=== PATIENT | female | born 1955 | race Caucasian/White ===

== ENCOUNTER 2020-01-30 18:36 | Emergency (ER) | payer MEDICAID ==
[~2020-01-30] VITALS: Ht 152.4 cm; Wt 48.5 kg
--- NOTE | 2020-01-30 18:45 | NUR ---
"Swollen joins-wrist and knees since friday also having allergies/sneezing" Patient a/ox4, ambulatory with steady gait, c/o pain on wrist and knees. Breathing even and unlabored, no sob noted.
[2020-01-30] MEDS ORDERED: IV NS 0.9% 1,000 ML BAG IV ONE (19:00)
[2020-01-30 19:13] LABS: BASOPHILS % (AUTO) 0.8 % (0.0-2.0); EOSINOPHILS % (AUTO) 2.7 % (0.0-6.0); HEMATOCRIT 36 % (33-45); HEMOGLOBIN 12.2 g/dL (11.5-14.8); LYMPHOCYTES # (AUTO) 1.1 /CMM (0.8-4.8); LYMPHOCYTES % (AUTO) 29.5 % (20.0-44.0); MEAN CORPUSCULAR HGB CONC 34 g/dl (31.0-36.0); MEAN CORPUSCULAR VOLUME 84 fL (82-100); MONOCYTES # (AUTO) 0.4 /CMM (0.1-1.30); NEUTROPHILS # (AUTO) 2.2 /CMM (1.8-8.9); PLATELET COUNT (AUTO) 167 /CMM (150-450); RED BLOOD CELL COUNT(AUTO) 4.31 MIL/uL (4.0-5.2); WHITE BLOOD COUNT (AUTO) 3.8 K/uL (4.3-11.0)
[2020-01-30 19:21] LABS: CALCIUM, SERUM 8.4 mg/dL (8.5-10.1); CREATININE 0.6 mg/dL (0.6-1.3); POTASSIUM 4.1 mmol/L (3.5-5.1)
[2020-01-30 19:33] LABS: ALBUMIN 3.6 g/dL (3.4-5.0); BILIRUBIN,DIRECT 0.1 mg/dL (0.0-0.2); BILIRUBIN,TOTAL 0.3 mg/dL (0.2-1.0); TOTAL PROTEIN, SERUM 7.1 g/dL (6.4-8.2)
--- NOTE | 2020-01-30 19:38 | NUR ---
COVID swab sent to lab and urine sample. Endorsed to Camryn ARCHULETA for JOSR.
--- NOTE | 2020-01-30 19:40 | NUR ---
US TECH AT BED SIDE
[2020-01-30 19:52] LABS: APPEARANCE,URINE Clear (CLEAR); BILIRUBIN,URINE Negative (NEGATIVE); BLOOD, URINE Negative Ery/uL (NEGATIVE); COLOR,URINE Yellow (YELLOW); KETONES,URINE Negative (NEGATIVE); LEUKOCYTE ESTERASE ,URINE Negative (NEGATIVE); NITRITE, URINE Negative (NEGATIVE); PH,URINE 5.5 (5.0-8.0); PROTEIN,URINE Negative (NEGATIVE); UGLUCOSE Negative (NEGATIVE); UROBILINOGEN,URINE 0.2 EU/dL (0.2)
--- NOTE | 2020-01-30 20:37 | NUR ---
PT IS MEDICALLY STABLE FOR D/C, IV removed. Catheter intact and site benign. Pressure and 4x4 applied to site. No bleeding noted.Patient discharged to home in stable condition. Rx and Written and verbal after care instructions given. Patient verbalizes understanding of instruction.
[2020-01-30 20:38] VITALS: BP 121/70
== END 2020-01-30 20:38 | disposition home or self-care (01) ==
LOC: ER 18:37
DX: M25.50 Pain in unspecified joint (principal); M71.22 Synovial cyst of popliteal space [Baker], left knee; R70.0 Elevated erythrocyte sedimentation rate; M79.89 Other specified soft tissue disorders; Z20.828 Contact with and (suspected) exposure to other viral communicable diseases; R79.82 Elevated C-reactive protein (CRP)
CPT/HCPCS: 36415; 71045; 73564; 80048; 80076; 81001; 85025; 85652; 85730; 86140; 87426; 93970; 96360; 99285; C9803; J7030; 81000-TC

== ENCOUNTER 2020-04-27 18:46 | Inpatient (IN) | payer MEDICAID ==
[~2020-04-27] VITALS: Ht 157.5 cm; Wt 51.3 kg
--- NOTE | 2020-04-27 19:14 | NUR ---
BLOOD COLLECTED AND SENT TO THE LAB.
--- NOTE | 2020-04-27 19:15 | NUR ---
PT BIBRA C/O ACHEST PAIN 01/23. VS CHECKED. STABLE. EKG DONE.
[2020-04-27 19:19] LABS: BASOPHILS % (AUTO) 0.6 % (0.0-2.0); EOSINOPHILS % (AUTO) 1.2 % (0.0-6.0); HEMATOCRIT 41 % (33-45); HEMOGLOBIN 13.1 g/dL (11.5-14.8); LYMPHOCYTES # (AUTO) 1.5 /CMM (0.8-4.8); LYMPHOCYTES % (AUTO) 29.4 % (20.0-44.0); MEAN CORPUSCULAR HGB CONC 32 g/dl (31.0-36.0); MEAN CORPUSCULAR VOLUME 81 fL (82-100); MONOCYTES # (AUTO) 0.4 /CMM (0.1-1.30); MONOCYTES % (AUTO) 6.9 % (2.0-12.0); NEUTROPHILS # (AUTO) 3.2 /CMM (1.8-8.9); NEUTROPHILS % (AUTO) 61.9 % (43.0-81.0); PLATELET COUNT (AUTO) 186 /CMM (150-450); RED BLOOD CELL COUNT(AUTO) 5.04 MIL/uL (4.0-5.2); WHITE BLOOD COUNT (AUTO) 5.1 K/uL (4.3-11.0)
--- NOTE | 2020-04-27 19:20 | NUR ---
CHEST XRAY BEING COMPLETED BY BEDSIDE.
[2020-04-27 19:25] LABS: BILIRUBIN,URINE Negative (NEGATIVE); BLOOD, URINE Negative Ery/uL (NEGATIVE); COLOR,URINE YELLOW (YELLOW); LEUKOCYTE ESTERASE ,URINE Negative (NEGATIVE); NITRITE, URINE Negative (NEGATIVE); PROTEIN,URINE Negative (NEGATIVE); UGLUCOSE Negative (NEGATIVE); UROBILINOGEN,URINE 0.2 EU/dL (0.2)
[2020-04-27 19:30] LABS: CREATININE 0.7 mg/dL (0.6-1.3); POTASSIUM 3.5 mmol/L (3.5-5.1)
[2020-04-27 19:35] LABS: BACTERIA,URINE Few /HPF (None Seen); RBC,URINE 0-2 /HPF (0-2); SQUAMOUS EPITHELIAL CELL,UR Few /HPF (None Seen); WBC,URINE 0-2 /HPF (0-3)
[2020-04-27 19:36] LABS: ALBUMIN 3.9 g/dL (3.4-5.0); BILIRUBIN,DIRECT 0.1 mg/dL (0.0-0.2); BILIRUBIN,TOTAL 0.2 mg/dL (0.2-1.0); CALCIUM, SERUM 8.7 mg/dL (8.5-10.1)
[2020-04-27] MEDS ORDERED: MORPHINE SULFATE INJ 2 MG/ML DISP.SYRIN ONE (19:51)
[2020-04-27] MEDS ORDERED: ASPIRIN 81 MG TAB.CHEW ONE (19:51)
[2020-04-27] MEDS ORDERED: NITROGLYCERIN 0.4 MG/TAB BOTTLE SL ONE ×2 (20:00→21:30)
[2020-04-27] MEDS ORDERED: ASPIRIN 81 MG TAB.CHEW PO ONE (20:00)
[2020-04-27] MEDS ORDERED: MORPHINE SULFATE INJ 2 MG/ML DISP.SYRIN IV ONE (20:00)
[2020-04-27] MEDS ORDERED: NITROGLYCERIN 0.4 MG/TAB BOTTLE ONE (20:21)
[2020-04-27] MEDS ORDERED: IV NS 0.9% 250 ML IV ONE (20:32)
[2020-04-27] MEDS ORDERED: IOHEXOL-350 100 ML VIAL IV ONE (20:32)
--- NOTE | 2020-04-27 21:12 | NUR ---
RETURNED FROM CT
[2020-04-27] MEDS ORDERED: MAGNESIUM HYDROXIDE 30 ML UDC PO PRN (21:30)
[2020-04-27] MEDS ORDERED: HEPARIN INFUSION/D5W 500 ML IV PRN (21:30)
[2020-04-27] MEDS ORDERED: ONDANSETRON HCL/PF 4 MG/2 ML VIAL IVP PRN (21:30)
[2020-04-27] MEDS ORDERED: HEPARIN INFUSION/D5W 500 ML IV ONE (21:30)
[2020-04-27] MEDS ORDERED: HEPARIN SODIUM, PORCINE 5000 UNITS/1 ML VIAL IV ONE (21:30)
[2020-04-27] MEDS ORDERED: Z GUARD REMEDY 2 OZ OINT TP PRN (21:30)
[2020-04-27] MEDS ORDERED: MAG HYDROX/AL HYDROX/SIMETH 30 ML UDC PO PRN (21:30)
[2020-04-27] MEDS ORDERED: HEPARIN SODIUM, PORCINE 5000 UNITS/1 ML VIAL ONE (21:56)
--- NOTE | 2020-04-27 22:10 | NUR ---
HEPARIN DRIP IV 20G LEFT AC ENDTIME: INFUSING ON ADMISSION, TITRATE PER PROTOCOL.
--- NOTE | 2020-04-27 22:42 | NUR ---
COVID SWAB COLLECTED AND SENT TO THE LAB.
--- NOTE | 2020-04-27 23:23 | NUR ---
TRIED CALLING FOR REPORT, NO ASSIGNMENT YET, STAFF WILL BACK.
[2020-04-28] VITALS (23 sets, daily range): BP systolic 91–137; BP diastolic 27–85
--- NOTE | 2020-04-28 00:41 | NUR ---
REPORT GIVEN TO VANESA ARCHULETA FOR JOSR.
--- NOTE | 2020-04-28 00:48 | NUR ---
PATIENT TRANSFERRED PER ACLS PROTOCOL TO ASSIGNED UNIT W/ HEPARIN DRIP INFUSING, NO ADVERSE SIDE EFFECTS NOTED. ENDORSED TO VANESA ARCHULETA.
[2020-04-28] MEDS: ZOLPIDEM TARTRATE 5 MG TABLET PO PRN ×2 (01:32→23:25)
--- NOTE | 2020-04-28 03:41 | NUR ---
RN notes Admitted a 64 year old female from ER on a stretcher in stable condition. In no apparent distress, breathing even and unlabored. Room air tolerating well. Alert and oriented x 4, verbally communicates need. No complaint of pain or discomfort, no chest pain. Troponin level increased from 2.276 to 16.884. MD made aware and ordered to take troponin level 3 times every 6 hours. Noted and carried out. Needs attended. Kept clean and dry. Will endorse to next shift for continuity of care.
[2020-04-28] MEDS: HYDROCODONE/APAP 5/325MG TABLET PO PRN ×2 (04:41→17:03)
[2020-04-28 06:10] LABS: BASOPHILS % (AUTO) 0.5 % (0.0-2.0); EOSINOPHILS % (AUTO) 0.9 % (0.0-6.0); HEMATOCRIT 38 % (33-45); HEMOGLOBIN 12.4 g/dL (11.5-14.8); LYMPHOCYTES # (AUTO) 2.2 /CMM (0.8-4.8); LYMPHOCYTES % (AUTO) 36.6 % (20.0-44.0); MEAN CORPUSCULAR HGB CONC 32 g/dl (31.0-36.0); MEAN CORPUSCULAR VOLUME 80 fL (82-100); MONOCYTES # (AUTO) 0.5 /CMM (0.1-1.30); NEUTROPHILS # (AUTO) 3.1 /CMM (1.8-8.9); PLATELET COUNT (AUTO) 162 /CMM (150-450); RED BLOOD CELL COUNT(AUTO) 4.77 MIL/uL (4.0-5.2); WHITE BLOOD COUNT (AUTO) 5.9 K/uL (4.3-11.0)
[2020-04-28 06:28] LABS: CALCIUM, SERUM 8.5 mg/dL (8.5-10.1); CREATININE 0.7 mg/dL (0.6-1.3); MAGNESIUM 2.1 mg/dL (1.8-2.4); PHOSPHORUS 3.7 mg/dL (2.5-4.9); POTASSIUM 3.4 mmol/L (3.5-5.1)
--- NOTE | 2020-04-28 07:31 | NUR ---
RN NOTE: PT IN BED, ALERT/ORIENTED X 4. PT ON RA O2 SATURATION 99%. NO RESPIRATORY DISTRESS OR SOB. PT IS AMBULATORY WITH SKIN INTACT. PT HAS LAC #20 CURRENTLY INFUSING HEPARIN IV PER PROTOCOL. NO SIGNS OF INFECTION OR INFILTRATION. PT ON MONITOR SHOWING NSR. PT IN BED LOCKED LOWEST POSITION. CALL LIGHT WITHIN REACH. ALL SAFETY MEASURES IN PLACE. WILL CONTINUE TO MONITOR CLOSELY. Addendum: 04/28/20 at 0735 by DEJA ABREU RN WRONG USER SIGN-IN
--- NOTE | 2020-04-28 07:36 | NUR ---
RN NOTE: PT IN BED, ALERT/ORIENTED X 4. PT ON RA O2 SATURATION 99%. NO RESPIRATORY DISTRESS OR SOB. PT IS AMBULATORY WITH SKIN INTACT. PT HAS LAC #20 CURRENTLY INFUSING HEPARIN IV PER PROTOCOL. NO SIGNS OF INFECTION OR INFILTRATION. PT ON MONITOR SHOWING NSR. PT IN BED LOCKED LOWEST POSITION. CALL LIGHT WITHIN REACH. ALL SAFETY MEASURES IN PLACE. WILL CONTINUE TO MONITOR CLOSELY.
[2020-04-28] MEDS ORDERED: POTASSIUM CHLORIDE 20 MEQ TAB.PRT.SR PO SCH (08:00)
[2020-04-28] MEDS: IV NS 0.9% 1,000 ML IV PRN ×2 (08:21→20:28)
--- NOTE | 2020-04-28 08:30 | NUR ---
HEPARIN INFUSION PAUSED PER MD SPRAGUE. PT TO HAVE ANGIOGRAM WITH POSSIBLE STENT PLACEMENT TODAY
[2020-04-28] MEDS: ASPIRIN 81 MG TAB.CHEW PO SCH (09:00)
[2020-04-28] MEDS ORDERED: ATORVASTATIN 10 MG TABLET PO SCH (09:00)
[2020-04-28] MEDS ORDERED: CHOL200059 PO (09:16)
[2020-04-28] MEDS ORDERED: CALC500T52 PO (09:16)
[2020-04-28] MEDS ORDERED: ALEN70TA69 PO (09:16)
[2020-04-28 09:50] LABS: IRON, SERUM 57 ug/dl (50-175); TOTAL IRON BINDING CAPACITY 370 ug/dl (250-450)
[2020-04-28 10:00] LABS: FERRITIN 10 ng/mL (8-388)
--- NOTE | 2020-04-28 10:00 | NUR ---
AM MEDS HELD DUE TO PROCEDURE. DR. JOSE CESPEDES ORDERED NPO, NO MEDS.
--- NOTE | 2020-04-28 11:00 | NUR ---
PROCEDURE EXPLAINED TO PT BY RN AND DR JOSE CESPEDES. CONSENT OBTAINED FOR PROCEDURE, BLOOD TRANSFUSION, AND ANESTHESIA.
[2020-04-28] MEDS ORDERED: IV NS 0.9% 1,000 ML ONE (12:05)
[2020-04-28] MEDS ORDERED: IODIXANOL 150 ML IV ONE (12:12)
[2020-04-28] MEDS ORDERED: LIDOCAINE HCL/PF 1% 30 ML SDV ONE (12:12)
[2020-04-28] MEDS ORDERED: NITROGLYCERIN ICAR 1,000 MCG/10 ML VIAL ICAR ONE (12:12)
--- NOTE | 2020-04-28 12:37 | NUR ---
PT TAKEN TO WORK CHECKER; PRE-OP CHECKLIST COMPLETED
[2020-04-28] MEDS ORDERED: MIDAZOLAM HCL 2 MG/2ML VIAL ONE (12:59)
[2020-04-28] MEDS ORDERED: FENTANYL PF 100MCG/2ML AMPUL ONE (12:59)
[2020-04-28] MEDS ORDERED: ATROPINE SULFATE 1 MG/10 ML DISP.SYRIN ONE (13:13)
--- NOTE | 2020-04-28 14:00 | NUR ---
RN NOTES RECEIVED PT FROM CATH LB. PT A/OX4. ON ROOM AIR. NO SOB NOTED. DENIES ANY PAIN. CONNECTED TO MONITOR. RIGHT TR BAND IN PLACE. NO SIGNS OF BLEEDING NOTED. NO CIRCULATORY IMPAIRMENT NOTED. GOOD PALPABLE PULSE NOTED. RIGHT GROIN ASSESSED, ANGIOSEAL ON. NO SIGNS OF BLEEDING NOTED. TEGADERM IN PLACE. FEMORAL PULSE NOTED. PT ON BED REST. WILL FOLLOW PROTOCOL. WILL CLOSELY MONITOR
[2020-04-28] MEDS ORDERED: IV NS 0.9% 1,000 ML IV ONE (14:30)
[2020-04-28] MEDS: ACETAMINOPHEN 325 MG TABLET PO PRN (15:06)
--- NOTE | 2020-04-28 16:00 | NUR ---
RN NOTES RIGHT TR BAND REMOVED. NO BLEEDING NOTED. PALPABLE PULSE NOTED. NO CIRCULATORY IMPAIRMENT NOTED. VS WNL. WILL MONITOR
[2020-04-28] MEDS: POTASSIUM CHLORIDE 20 MEQ TAB.PRT.SR PO SCH ×3 (17:03→20:32)
--- NOTE | 2020-04-28 18:48 | NUR ---
RN CLOSING NOTES NO SIGNIFICANT CHANGE NOTED. VS WNL. NO BLEEDING NOTED. NO SOB NOTED. DENIES ANY PAIN. ALL NEEDS ATTENDED AND MET. KEPT COMFORTABLE. CALL LIGHT WITHIN REACH. WILL ENDORSE FOR CONTINUITY OF CARE
[2020-04-28] MEDS ORDERED: POTASSIUM CHLORIDE 20 MEQ TAB.PRT.SR PO ONE (20:30)
[2020-04-29] VITALS (14 sets, daily range): BP systolic 98–125; BP diastolic 53–81
[2020-04-29] MEDS: IV NS 0.9% 1,000 ML IV PRN (03:49)
[2020-04-29 05:07] LABS: BASOPHILS % (AUTO) 0.8 % (0.0-2.0); EOSINOPHILS % (AUTO) 1.8 % (0.0-6.0); HEMATOCRIT 36 % (33-45); HEMOGLOBIN 11.4 g/dL (11.5-14.8); LYMPHOCYTES % (AUTO) 26.6 % (20.0-44.0); MEAN CORPUSCULAR HGB CONC 32 g/dl (31.0-36.0); MEAN CORPUSCULAR VOLUME 81 fL (82-100); MONOCYTES # (AUTO) 0.3 /CMM (0.1-1.30); NEUTROPHILS # (AUTO) 2.4 /CMM (1.8-8.9); NEUTROPHILS % (AUTO) 61.8 % (43.0-81.0); PLATELET COUNT (AUTO) 142 /CMM (150-450); RED BLOOD CELL COUNT(AUTO) 4.43 MIL/uL (4.0-5.2); WHITE BLOOD COUNT (AUTO) 3.8 K/uL (4.3-11.0)
[2020-04-29 05:19] LABS: ALBUMIN 2.8 g/dL (3.4-5.0); BILIRUBIN,TOTAL 0.3 mg/dL (0.2-1.0); CALCIUM, SERUM 7.9 mg/dL (8.5-10.1); CREATININE 0.5 mg/dL (0.6-1.3); MAGNESIUM 2.1 mg/dL (1.8-2.4); PHOSPHORUS 2.6 mg/dL (2.5-4.9); POTASSIUM 4.2 mmol/L (3.5-5.1); TOTAL PROTEIN, SERUM 5.9 g/dL (6.4-8.2)
--- NOTE | 2020-04-29 06:20 | NUR ---
L D RN: NO SIGNIFICANT JOSR DURING THE SHIFT. REMAINED A/O X3, ON ROOM AIR. NO ACUTE DISTRESS. NO C/O PAIN. NO ACTIVE BLEEDING ON RIGHT RADIAL AND RIGHT FEMORAL SITES WT PALPABLE PULSES. AFEBRILE. SR ON LOGISTICS SOLUTION MANAGER. CONTINUE ON NS AT 125ML/HR WT NO S/S OF IV INFILTRATION. ABLE TO VOID ON BED SIDE COMMODE. TROPONIN RESULTS STILL ELEVATED BUT TRENDING DOWN. HOB AT 35 DEGREES. BED IN LOWEST POSITION AND LOCKED, BED ALARM ACTIVATED. SIDE RAILS UP X2. CALL LIGHT KEPT WITHIN REACH.
[2020-04-29] MEDS: ASPIRIN 81 MG TAB.CHEW PO SCH (09:28)
[2020-04-29] MEDS ORDERED: DILTIAZEM HCL CD 240 MG PO SCH (09:30)
[2020-04-29] MEDS: ACETAMINOPHEN 325 MG TABLET PO PRN (09:36)
[2020-04-29] MEDS ORDERED: DILT240C88 PO (13:40)
[2020-04-29] MEDS ORDERED: ASPI-1169 PO (13:40)
--- NOTE | 2020-04-29 15:06 | NUR ---
rn notes all discharge instructions given to the pt, prescription given and instructions re f/up appt; pt verbalized understanding. /no chest pain,
--- NOTE | 2020-04-29 15:39 | NUR ---
martín dc notes pt left unit via wheelchair in stable condition, accompanied by ROLL FILLER.
== END 2020-04-29 15:45 | disposition home or self-care (01) | DRG 190 ==
LOC: ER 19:07 → ICU 23:09 → TELE1 04-28 00:02 → ICU 04-28 13:59 → MED 04-29 14:00
PROVIDERS: ADMIT Family Medicine
PROC: 4A023N7 Measurement of Cardiac Sampling and Pressure, Left Heart, Percutaneous Approach (ICD-10-PCS; principal; 2020-04-28)
PROC: B211YZZ Fluoroscopy of Multiple Coronary Arteries using Other Contrast (ICD-10-PCS; 2020-04-28)
PROC: B215YZZ Fluoroscopy of Left Heart using Other Contrast (ICD-10-PCS; 2020-04-28)
DX: I25.111 Atherosclerotic heart disease of native coronary artery with angina pectoris with documented spasm (principal); I21.A1 Myocardial infarction type 2; M81.0 Age-related osteoporosis without current pathological fracture; I45.10 Unspecified right bundle-branch block; D64.9 Anemia, unspecified; I95.9 Hypotension, unspecified; Z80.1 Family history of malignant neoplasm of trachea, bronchus and lung
CPT/HCPCS: 36415; 71045-TC; 80048-TC; 80053-TC; 80061-TC; 80076-TC; 81001; 82728-TC; 83540-TC; 83690-TC; 83735-TC; 84100-TC; 84484-TC; 85025-TC; 85378-TC; 85610-TC; 85730-TC; 87081-TC; 93307-TC; C1887; C1894; G0378; G0500; J0461; J1644; J2250; J2270; J2405; J3010; J3490; J7030; J7050; Q9967

== ENCOUNTER 2021-10-12 04:50 | Emergency (ER) | payer OTHER, BC ==
[~2021-10-12] VITALS: Ht 157.5 cm; Wt 49.9 kg
[~2021-10-12 04:50] MED LIST: ALEN70TA80 PO; ASPI-1169 PO; CALC500T52 PO; CHOL200059 PO; DILT240C88 PO
[2021-10-12] MEDS ORDERED: ONDANSETRON HCL/PF 4 MG/2 ML VIAL IVP ONE (05:00)
[2021-10-12] MEDS ORDERED: MORPHINE SULFATE INJ 2 MG/ML DISP.SYRIN IV ONE (05:00)
--- NOTE | 2021-10-12 05:00 | NUR ---
[id number] FROM HOME C/O MIDSTERNAL CP RADIATING MID BACK SINCE 9AM YESTERDAY. [facility] ADMINISTERED 1NITRO SPRAY 0.4MG & ASPIRIN 324 WITH NO RELIEF. PT A/OX4. TOLERATING R/A WELL WITH NO SOB AT 99%. CONNECTED PT TO POX AND MONITOR. PT IN GOWN.
[2021-10-12] MEDS ORDERED: MORPHINE SULFATE INJ 2 MG/ML DISP.SYRIN ONE (05:05)
[2021-10-12] MEDS ORDERED: ONDANSETRON HCL/PF 4 MG/2 ML VIAL ONE (05:05)
--- NOTE | 2021-10-12 05:11 | NUR ---
RAC #18G S/L; PATENT AND INTACT. BLOOD AND COVID ANTIGEN SWAB COLLECTED AND SENT TO LAB.
[2021-10-12 05:20] LABS: BASOPHILS % (AUTO) 0.9 % (0.0-2.0); EOSINOPHILS % (AUTO) 2.3 % (0.0-6.0); HEMATOCRIT 40 % (33-45); HEMOGLOBIN 13.5 g/dL (11.5-14.8); LYMPHOCYTES # (AUTO) 1.5 K/uL (0.8-4.8); LYMPHOCYTES % (AUTO) 35.3 % (20.0-44.0); MEAN CORPUSCULAR HGB CONC 33 g/dl (31.0-36.0); MEAN CORPUSCULAR VOLUME 88 fL (82-100); MONOCYTES # (AUTO) 0.3 K/uL (0.1-1.30); NEUTROPHILS # (AUTO) 2.2 K/uL (1.8-8.9); NEUTROPHILS % (AUTO) 53.5 % (43.0-81.0); PLATELET COUNT (AUTO) 149 K/uL (150-450); WHITE BLOOD COUNT (AUTO) 4.2 K/uL (4.3-11.0)
[2021-10-12 05:29] LABS: CALCIUM, SERUM 8.7 mg/dL (8.5-10.1); CARBON DIOXIDE 28 mmol/L (21-32); CHLORIDE 105 mmol/L (98-107); CREATININE 0.7 mg/dL (0.6-1.3); GLUCOSE 101 mg/dL (74-106); POTASSIUM 3.5 mmol/L (3.5-5.1); SODIUM SERUM 138 mmol/L (136-145); UREA NITROGEN, BLOOD 12 mg/dL (7-18)
[2021-10-12 05:35] LABS: D-DIMER 0.54 mg/L(FEU (0.17-0.50)
--- NOTE | 2021-10-12 05:44 | NUR ---
NORMALIZER AT PT'S BEDSIDE
[2021-10-12 05:49] LABS: ALANINE AMINOTRANSFERASE 21 U/L (12-78); ALBUMIN 3.7 g/dL (3.4-5.0); ALKALINE PHOSPHATASE 56 U/L (46-116); ASPARTATE AMINOTRANSFERASE 17 U/L (15-37); BILIRUBIN,DIRECT 0.1 mg/dL (0.0-0.2); BILIRUBIN,TOTAL 0.3 mg/dL (0.2-1.0); TOTAL PROTEIN, SERUM 7.1 g/dL (6.4-8.2)
[2021-10-12] MEDS ORDERED: ASPIRIN 81 MG TAB.CHEW ONE (06:58)
--- NOTE | 2021-10-12 06:59 | NUR ---
AUTOCUTTER AT PT'S BEDSIDE
[2021-10-12] MEDS ORDERED: ASPIRIN 81 MG TAB.CHEW PO ONE (07:00)
--- NOTE | 2021-10-12 07:30 | NUR ---
Recived pt awake and alert c/o cp got worse with movement 12/23 case monitor showing NSR wating no sob wating for lab result
--- NOTE | 2021-10-12 08:43 | NUR ---
Nik for plan transfer [facility]
--- NOTE | 2021-10-12 08:49 | NUR ---
CEFLYN [phone]
--- NOTE | 2021-10-12 10:22 | NUR ---
CALLED ELIANE [phone] PT WILL GO TO [facility] WAITING PEER 2 PEER.
--- NOTE | 2021-10-12 10:32 | NUR ---
no chest pain noted looks comfortable no sob
--- NOTE | 2021-10-12 10:59 | NUR ---
Chest pain got worse with movment pt on here phone al time no sob looks comfortable
--- NOTE | 2021-10-12 12:40 | NUR ---
ADMITTING INFO: SPOKE TO ASHISH OF [facility] [phone], PT ADMITTED AT [facility] ER TO ER UNDER DR BERRY CARR. GIVE REPORT TO [phone] [facility]. [facility] TIME AMBULANCE ETA AT 1300
[2021-10-12 13:47] VITALS: BP 121/75
--- NOTE | 2021-10-12 13:50 | NUR ---
PT SIGN TRANSFER TO [facility] NO SOB OR RESPRATORY DISTRES
[2021-10-12] MEDS ORDERED: ACETAMINOPHEN 325 MG TABLET ONE (14:00)
--- NOTE | 2021-10-12 14:03 | NUR ---
CELL NUMBER [phone]
--- NOTE | 2021-10-12 14:15 | NUR ---
REPORT GIVEN TO ARIANA FROM [facility] FOR JOSR
[2021-10-14] MEDS ORDERED: ACETAMINOPHEN 325 MG TABLET PO ONE (15:00)
== END 2021-10-12 14:43 | disposition short-term general hospital (02) ==
LOC: ER 04:57
DX: R07.2 Precordial pain (principal); I25.2 Old myocardial infarction; Z98.82 Breast implant status; Z20.822 Contact with and (suspected) exposure to COVID-19; R00.1 Bradycardia, unspecified; M81.0 Age-related osteoporosis without current pathological fracture; Z79.82 Long term (current) use of aspirin; Z79.899 Other long term (current) drug therapy
CPT/HCPCS: 36415; 71045; 80048; 80076; 83880; 84484 ×3; 85025; 85378; 85730; 87426; 93005; 96374; 96375; 99285; C9803; J2270; J2405